=== PATIENT | male | born 1980 | race Caucasian/White ===

== ENCOUNTER 2016-04-22 11:55 | Emergency (ER) | payer OTHER ==
[~2016-04-22 11:55] MED LIST: AMOXICILLIN500 M1 PO; B/P PILL; FLEXERIL PO; KEFLEX500 M1 PO; LEG CRAMP MED; LOPERAMIDE 2 MG PO; MOTRIN400 MG PO; NAPROXEN PO; NERVE MED; NICOTINE 21 MG TOP; NO MEDICATIONS; REFENESEN400 MG PO; SLEEP MED; TYLENOL EXTRA500 M1 PO; ULTRAM PO
[2016-04-22 12:31] LABS: BASOPHIL# 0.1 X10e3 (0-0.3); BASOPHIL% 0.7 % (0-2.5); EOSINOPHIL# 0.3 X10e3 (0-0.7); EOSINOPHIL% 2.6 % (0.0-7.0); HEMATOCRIT 49.2 % (38.0-50.0); HEMOGLOBIN 16.1 gm/dL (13.0-16.0); LYMPHOCYTE# 1.3 X10e3 (1.0-3.5); LYMPHOCYTE% 10.8 % (17.0-45.0); MEAN CELL VOLUME 90.6 FL (83-96); MEAN CORPUSCULAR HEMOGLOBIN 29.6 PG (28-34); MEAN CORPUSCULAR HGB CONC 32.6 g/dL (30-36); MEAN PLATELET VOLUME 8.4 FL (6.5-11.5); MONOCYTE% 8.3 % (3.0-12.0); NEUTROPHIL# 9.1 X10e3 (1.5-7.1); NEUTROPHIL% 77.6 % (40-75); PLATELET COUNT 366 X10e3 (140-420); RED BLOOD COUNT 5.44 X10e (3.90-5.60); RED CELL DISTRIBUTION WIDTH 15.7 % (11.0-15.5); WHITE BLOOD COUNT 11.7 X10e3 (4.0-10.5)
[2016-04-22 12:34] LABS: DIFF IND NO
[2016-04-22 12:55] LABS: AMPHETAMINE POS (NEG); BARBITURATES NEG (NEG); BENZODIAZEPINES NEG (NEG); COCAINE NEG (NEG); MARIJUANA NEG (NEG); OPIATES POS (NEG); TRICYCLIC ANTIDEPRESSANTS NEG (NEG); U METHADONE NEG (NEG)
[2016-04-22 12:56] LABS: BLOOD UREA NITROGEN 10 mg/dL (9-23); CALCIUM SERUM 9.8 mg/dL (8.4-10.2); CARBON DIOXIDE 29 mmol/L (22-31); CHLORIDE 102 mmol/L (100-111); GLOM FILT RATE Estimated ABOVE60 mL/min (>60); GLUCOSE FASTING 121 mg/dL (70-110); POTASSIUM 4.2 mmol/L (3.5-5.1); SODIUM 139 mmol/L (135-145)
== END 2016-04-22 13:32 | disposition home or self-care (01) ==
LOC: SED 11:55
PROVIDERS: Nurse Practitioner
DX: L02.413 Cutaneous abscess of right upper limb (principal); L03.113 Cellulitis of right upper limb; I10 Essential (primary) hypertension; F17.210 Nicotine dependence, cigarettes, uncomplicated
CPT/HCPCS: 36415; 80048; 80307; 85025; 87070; 87186; 87205; 96374; 96375; 96376; 99284; J1885